=== PATIENT | male | born 1955 | race Caucasian/White ===

== ENCOUNTER 2020-04-04 11:33 | Inpatient (IN) | payer OTHER, MEDICARE ==
[~2020-04-04] VITALS: Ht 180.3 cm; Wt 99.8 kg
[2020-04-04] MEDS ORDERED: Prozac40 MG PO (11:49)
[2020-04-04] MEDS ORDERED: Aspirin EC81 MG PO (11:49)
[2020-04-04] MEDS ORDERED: FLUT.05NI (11:52)
[2020-04-04 12:28] LABS: BASOPHILS ABSOLUTE AUTO 0.07 K/mm3 (0.00-0.23); BASOPHILS PERCENT AUTO 1 % (0-2); EOSINOPHILS ABSOLUTE AUTO 0.19 K/mm3 (0.00-0.68); EOSINOPHILS PERCENT AUTO 2 % (0-6); Hematocrit 40.3 % (37.0-53.0); Hemoglobin 13.2 g/dL (13.5-17.5); IMMATURE GRAN ABSOLUTE AUTO 0.07 K/mm3 (0.00-0.10); IMMATURE GRAN PERCENT AUTO 1 % (0-1); LYMPHOCYTES ABSOLUTE AUTO 1.57 K/mm3 (0.84-5.20); LYMPHOCYTES PERCENT AUTO 12 % (21-46); MONOCYTES ABSOLUTE AUTO 0.85 K/mm3 (0.16-1.47); MONOCYTES PERCENT AUTO 7 % (4-13); Mean Corpuscular HGB 30.6 pg (26.0-34.0); Mean Corpuscular HGB Conc 32.8 g/dL (31.5-36.5); Mean Corpuscular Volume 93 fL (80-100); Mean Platelet Volume 10.1 fL (9.1-12.4); NEUTROPHILS ABSOLUTE AUTO 10.17 K/mm3 (1.96-9.15); NEUTROPHILS PERCENT AUTO 79 % (41-73); Platelet Count 193 K/mm3 (150-400); RDW Coefficient Variation 13.3 % (11.7-14.2); RDW Standard Deviation 45.5 fL (35.1-46.3); Red Blood Cell Count 4.32 M/mm3 (4.30-5.90); White Blood Cell Count 12.92 K/mm3 (4.00-11.30)
[2020-04-04 12:41] LABS: International Normalized Ratio 1.05; Prothrombin Time Results 11.2 Sec (9.7-11.5)
[2020-04-04 12:43] LABS: Alanine Aminotransfer (ALT/SGP 24 U/L (12-78); Albumin, Blood 2.9 g/dL (3.4-5.0); Albumin/Globulin Ratio 0.9 (0.8-1.8); Alk Phos 85 U/L (50-136); Anion Gap 5 mmol/L (6-16); Aspartate Aminotrans (AST/SGOT 13 U/L (12-37); Bilirubin, Total 0.3 mg/dL (0.1-1.0); Blood Urea Nitrogen 15 mg/dL (8-24); Bun/Creatinine Ratio 13.3 (12.0-20.0); CO2, Blood 25 mmol/L (21-32); Chloride, Blood 113 mmol/L (98-108); Creatinine, Blood 1.13 mg/dL (0.60-1.20); Globulin, Blood 3.3 g/dL (2.2-4.0); Glomerular Filtration Rate >60 (60-); Glucose, Blood 106 mg/dL (70-99); Potassium, Blood 3.8 mmol/L (3.5-5.5); Sodium, Blood 143 mmol/L (136-145); Total Protein, Blood 6.2 g/dL (6.4-8.2)
[2020-04-04 14:35] LABS: Source, Urine Clean Catch
[2020-04-04 14:38] LABS: Bilirubin, Urine Neg (Neg); Blood, Urine 1+ (Neg); Glucose Qualitative, Urine Neg (Neg); Ketones, Urine 1+ (Neg); Leukocyte Esterase, Urine Neg (Neg); Nitrite, Urine Neg (Neg); Protein, Urine Neg (Neg); Urobilinogen, Urine NORM (Normal)
[2020-04-04 14:50] LABS: Appearance, Urine Clear (Clear); Color, Urine Yellow (P-Yellow)
[2020-04-04 14:52] LABS: Mucus Mod (0-Heavy); White Blood Cells, Urine 0-2 /hpf (0-5)
[2020-04-04 14:53] LABS: Bacteria Few /hpf; Squamous Epithelial Cells Not Seen /hpf (Few)
--- NOTE | 2020-04-04 16:40 | NUR ---
ADMISSION: REPORT RECIEVED FROM CHAPARRITA UMANZOR RN. PT TO UNIT AT ABOUT 1610. UPON ASSESSMENT PT IN NO VISABLE DISTRESS, ABLE TO AMBULATE TO BED FROM WHEELCHAIR PAINFULLY BU WITH SUCCESS. VSS, A/O. SEE ADMISSION ASSESSMENT, ORIENTED TO ROOM CALL LIGHT IN REACH.
--- NOTE | 2020-04-04 18:41 | NUR ---
SUMMARY: NO ACUTE CHANGE SINCE ADMISSION
--- NOTE | 2020-04-05 04:23 | NUR ---
SHIFT SUMMARY LYING IN SEMI FOWLERS, HAS RESTED WELL. LEFT ARM IN SPLINT D/T ULNAR FX. PT KEEPS IT CLOSE TO HIS BODY FOR SUPPORT. DISCUSSED USE OF SLING, STATES HE WOULD LIKE TO TRY IT. 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 WILL PASS IT ON TO DAY SHIFT. RIGHT AC 18G SL PIV IS PATENT, FLUSHING WITH EASE. DENIES PAIN, DISCOMFORT, OR FURTHER NEEDS AT THIS TIME. SAFETY MEAURES IN PLACE. WILL CONTINUE TO MONITOR AND GIVE HAND OFF TO ONCOMING SHIFT USING SBAR.
--- NOTE | 2020-04-05 05:17 | NUR ---
Osiris MCDOWELL, [place] II NOTED PT'S O2 SAT AT 74% WHEN TAKING AM VITALS. O2 PLACED AT 6L/NC. OS SAT INCREASED TO 91%. Delbert SANDOVAL, RT CONTACTED AND ALSO ASSESSED PT AT BEDSIDE. WE NOTED THAT HIS BBS ARE CLEAR BUT DIMINSHED IN LEFT BASES WHICH WAS BASELINE AT START OF SHIFT. OXYGENATION INCREASED TO 95% AFTER PLACING O2 INTO HIS MOUTH AND ENCOURAGING HIM TO TAKE DEEPER BREATHS. AAO X3, ANSWERS ALL QUESTIONS APPROPRIATELY. STATED THAT HE WAS TRYING TO CLEAR HIS THROAT FROM THE PHLEGUM BUILD UP THAT HE FELT IN HIS THROAT. HE SAID THAT HIS PAIN INCREASED FROM 5/10 TO 10/10 AND HE HELD HIS BREATH TO HELP DEAL WITH THE PAIN. HUMIDIFIED O2 THEN PLACED AT 4L/NC. CONTINUOUS PULSE OX PLACED ON HIM AND HE HAS MAINTAINED O2 LEVELS AT 92% AND ABOVE. GIVEN A FLUTTER VALVE AND INSTRUCTED ON USE, VOICES UNDERSTANDING. DENIES FURTHER NEEDS OR WANTS AT THIS TIME. SAFETY MEASURES IN PLACE. WILL CONTINUE TO MONITOR.
--- NOTE | 2020-04-05 15:34 | NUR ---
SHIFT SUMMARY PT A&OX4, VSS, ALEX SPLINT/ACEWRAP/ELEVATED ON PILLOW, L RIB FX - TCDB, I.S. & FLUTTER VALVE DEMONSTRATED AND USED T/O SHIFT; RA T/O SHIFT; BIOX AT BEDSIDE OXYGEN SATS > 93% RA. PAIN MANAGED WITH 5 MG NORCO. AMBULATES W/SBA TO BRP AND HALLWAY; UP TO CHAIR. VOIDING WELL. THAI PO, DENIES N&V. WILL REPORT TO ONCOMING MARCO A RN.
--- NOTE | 2020-04-06 04:16 | NUR ---
SHIFT SUMMARY: PT A&O X4. VS WNL. RA THIS SHIFT WITH O2 >90%. BIOX IN PLACE. PT ENCOURAGED TO USE INCENTIVE SPIROMETER AND FLUTTER. PT REPORTS USING BOTH FREQ. LUNGS SOUNDS CLEAR AND DIMINISHED. PAIN BEING MANAGED WITH NORCO PER EMAR. PT ALSO MEDICATED WITH TORADOL ONCE. LEFT ARM ELEVATED WITH SPLINT AND ANALI WRAP IN PLACE. PT ABLE TO WIGGLE FINGERS. CAP REFILL WNL. DENIES N/T. SBA TO BATHROOM. VOIDING WELL. THAI PO AND DENIES N/V.
[2020-04-06] MEDS ORDERED: Norco 5-325 Ta1 EACH PO (11:14)
[2020-04-06] MEDS ORDERED: IBUP600 PO (11:14)
[2020-04-06] MEDS ORDERED: MIRALAX17 GM PO (11:15)
--- NOTE | 2020-04-06 18:24 | NUR ---
SHIFT SUMMARY PT A&OX4, VSS, RA, BIOX >94%, INDEPENDENT IN ROOM/BRP/HALLWAYS, UP TO CHAIR T/O SHIFT, TCDB, FLUTTER & I.S. USED T/O SHIFT. ALEX SPLINT/ANALI ELEVATED, WIGGLES FINGERS, DENIES N&T, CAP REFILL WNL. PAIN MANAGED WITH NORCO AND IBUPROFEN. THAI PO, DENIES N&V. WILL REPORT TO ONCOMING NOC YENI.
--- NOTE | 2020-04-07 04:52 | NUR ---
SHIFT SUMMARY: PT A&O X4. VS WNL. PAIN BEING MANAGED WITH 2 NORCO AND IBUPROFEN THIS SHIFT. PT DID HAVE AN EPISODE OF 9/10 PAIN IN WHICH HE NEEDED ASSISTANCE TRANSFERING FROM THE CHAIR TO BED. PT APPEARS TO BE ANXIOUS ABOUT DISCHARGING HOME TODAY AND IS CONCERNED ABOUT HOW HE WILL MONITOR HIS OXYGEN SATURATION. PT CONTINUES TO C/O PHLEMN IN HIS CHEST. PT DEMONSTRATING USE OF FLUTTER. AMBULATED IN HALLWAY INDEPENDENTLY ONCE THIS SHIFT. LEFT ARM REMAINS STABLE IN SPLINT WITH ANALI WRAP AND SLING.
--- NOTE | 2020-04-07 09:45 | NUR ---
DISCHARGE ESCORTED OUT VIA W/C. IS & FLUTTER SENT. SCRIPT GIVEN. PT AMBULATING WELL IN HALLWAYS, EATING, DRINKING, VOIDING. DISCUSSED IMPORTANCE OF TAKING MIRALAX. PT STATES HE HAS SOME AT HOME.
== END 2020-04-07 09:45 | disposition home or self-care (01) | DRG 184 ==
LOC: ER 11:33 → ERHOLD 11:34 → SURS 11:34
PROVIDERS: Physician Assistant; ADMIT Surgery
PROC: 2W3DX1Z Immobilization of Left Lower Arm using Splint (ICD-10-PCS; principal; 2020-04-04)
DX: S22.42XA Multiple fractures of ribs, left side, initial encounter for closed fracture (principal); S52.502A Unspecified fracture of the lower end of left radius, initial encounter for closed fracture; W11.XXXA Fall on and from ladder, initial encounter; Y92.008 Other place in unspecified non-institutional (private) residence as the place of occurrence of the external cause; F17.210 Nicotine dependence, cigarettes, uncomplicated; F41.9 Anxiety disorder, unspecified; Z79.82 Long term (current) use of aspirin
CPT/HCPCS: 29105; 71046; 71260; 73110; 74177; 80053; 81001; 83690; 85025; 85610; 90471; 90714; 94667; 94762; 96374-59; 96375-59; 96376; 99285-25; A9270-GY; J1170; J1650; J1885; J2270; J2405; J3010; J7120; Q9967